=== PATIENT | female | born 1985 | race Caucasian/White ===

== ENCOUNTER 2017-04-28 08:45 | Inpatient (IN) | payer OTHER ==
[~2017-04-28] VITALS: Ht 167.6 cm; Wt 82.6 kg
[2017-05-31] MEDS ORDERED: PRENATAL 19 TA1 EACH PO (14:47)
[2017-05-31] MEDS ORDERED: IRON18 MG PO (14:48)
== END 2017-06-03 11:37 | DRG 775 ==
LOC: OB/GYN 05-30 08:45 → LDR 05-31 12:38 → OB/GYN 06-01 14:00
PROC: 4A1HXCZ Monitoring of Products of Conception, Cardiac Rate, External Approach (ICD-10-PCS; 2017-05-31)
PROC: 0DQR0ZZ Repair Anal Sphincter, Open Approach (ICD-10-PCS; principal; 2017-06-01)
PROC: 10E0XZZ Delivery of Products of Conception, External Approach (ICD-10-PCS; 2017-06-01)
PROC: 4A033R1 Measurement of Arterial Saturation, Peripheral, Percutaneous Approach (ICD-10-PCS; 2017-06-01)
DX: O70.20 Third degree perineal laceration during delivery, unspecified (principal); Z3A.40 40 weeks gestation of pregnancy; Z37.0 Single live birth; O48.0 Post-term pregnancy

== ENCOUNTER 2017-05-12 09:23 | Outpatient (CLI) | payer OTHER | END 2017-05-12 10:39 | disposition home or self-care (01) | LOC: NST 09:23 | DX: Z34.03 Encounter for supervision of normal first pregnancy, third trimester (principal) ==

== ENCOUNTER 2017-05-26 09:05 | Outpatient (CLI) | payer OTHER | END 2017-05-26 09:54 | disposition home or self-care (01) | LOC: NST 09:05 | DX: Z34.93 Encounter for supervision of normal pregnancy, unspecified, third trimester (principal) ==

== ENCOUNTER 2017-05-31 11:32 | Outpatient (CLI) | payer OTHER ==
[2017-05-31] MEDS ORDERED: PRENATAL 19 TA1 EACH PO (14:47)
[2017-05-31] MEDS ORDERED: IRON18 MG PO (14:48)
== END 2017-05-31 12:57 | disposition still patient (30) ==
LOC: NST 11:32
DX: Z34.83 Encounter for supervision of other normal pregnancy, third trimester (principal)

== ENCOUNTER → 2018-07-10 | Emergency (ER) | payer OTHER ==
[~2018-07-10] VITALS: Ht 167.6 cm; Wt 74.8 kg
[~2018-07-10] MED LIST: IRON18 MG PO; PRENATAL 19 TA1 EACH PO
== END | disposition home or self-care (01) ==
LOC: ER 18:47
DX: K52.9 Noninfective gastroenteritis and colitis, unspecified (principal)

== ENCOUNTER 2018-10-19 10:09 | Outpatient (CLI) | payer OTHER | END 2018-10-19 11:16 | disposition home or self-care (01) | LOC: NST 10:09 | DX: Z34.83 Encounter for supervision of other normal pregnancy, third trimester (principal) ==

== ENCOUNTER 2018-10-20 08:05 | Inpatient (IN) | payer OTHER ==
[~2018-10-20] VITALS: Ht 167.6 cm; Wt 81.6 kg
== END 2018-10-22 13:18 | disposition home or self-care (01) | DRG 807 ==
LOC: LDR 08:05 → OB/GYN 08:05 → LDR 10-21 12:20 → OB/GYN 10-22 13:18
PROVIDERS: ADMIT Obstetrics & Gynecology
PROC: 10E0XZZ Delivery of Products of Conception, External Approach (ICD-10-PCS; principal; 2018-10-20)
PROC: 4A1HXCZ Monitoring of Products of Conception, Cardiac Rate, External Approach (ICD-10-PCS; 2018-10-20)
PROC: 0HQ9XZZ Repair Perineum Skin, External Approach (ICD-10-PCS; 2018-10-20)
DX: O70.0 First degree perineal laceration during delivery (principal); Z37.0 Single live birth; Z3A.39 39 weeks gestation of pregnancy